=== PATIENT | male | born 1995 | race Caucasian/White ===

== ENCOUNTER 2016-10-26 18:51 | Emergency (ER) | payer OTHER ==
[~2016-10-26] VITALS: Ht 185.4 cm; Wt 86.2 kg
[2016-10-26 19:04] VITALS: TEMP 36.6; Ht 185.4 cm; Wt 86.2 kg
[2016-10-26] MEDS ORDERED: XYLOCAINE 1%/SOD BICARB 20 ML VIAL INFIL STA (19:59)
[2016-10-26] MEDS ORDERED: BUPIVACAINE 0.5 % 5 MG/1 ML MPF 30ML VIAL INFIL ONE (20:00)
--- NOTE | 2016-10-26 20:44 | DIAGNOSTIC IMAGING REPORT ---
LEFT INDEX FINGER 3 VIEWS CLINICAL HISTORY: left index finger laceration COMPARISON: None. DISCUSSION: No fractures or dislocations are visualized. No radiopaque foreign bodies are visualized. There is soft tissue laceration at the level of the proximal interphalangeal joint. IMPRESSION: 1. No fractures or dislocations identified 2. No radiopaque foreign bodies identified Electronically signed by: Steven Madrid M.D. 10/26/2016 8:41 PM Dictated Date/Time: 10/26/2016 8:41 PM
--- NOTE | 2016-10-26 21:35 | EMERGENCY ROOM VISIT NOTE ---
ED Visit Note First contact with patient: 19:52 Chief Complaint: "laceration to left hand" History of Present Illness: This patient is a 20 year old male who presents to the Emergency Department via private vehicle for evaluation of their left index finger laceration. Patient sustained the laceration while moving a mirror. They report a moderate amount of bleeding initially. They deny any numbness or tingling into the distal extremity. They report no decreased range of motion of the affected digit. Patient rates his current discomfort as a 6/10. He is right-handed. Patient's Tetanus status is currently up-to-date. Medications: none reported Allergies: NKDA PMH: No pertinent. SHx: Pt. is a [employer] student. ROS: All pertinent positive and negative review of systems are appropriately documented in the History of Present Illness. Physical Exam: VITAL SIGNS - Vital signs and nursing notes were reviewed. GENERAL -20-year-old male appearing his stated age who is in no acute distress. Communicates well with provider and answers questions appropriately. SKIN - There is a 1.5 cm long laceration noted on the ventral aspect of the left 2nd digit. The edges gape apart with traction. No foreign bodies appreciated. Upon further examination there are no deep structures including vessel, tendon, or bony structures appreciated. There is no active bleeding noted. MUSCULOSKELETAL - Laceration as described above. +5/5 strength appreciated of the affected digit. Full range of motion of the affected digit. NEUROLOGIC - no neurologic deficits. VASCULAR - Capillary refill was brisk. IMAGING: LEFT INDEX FINGER 3 VIEWS CLINICAL HISTORY: left index finger laceration COMPARISON: None. DISCUSSION: No fractures or dislocations are visualized. No radiopaque foreign bodies are visualized. There is soft tissue laceration at the level of the proximal interphalangeal joint. IMPRESSION: 1. No fractures or dislocations identified 2. No radiopaque foreign bodies identified Electronically signed by: Steven Madrid M.D. 10/26/2016 8:41 PM Dictated Date/Time: 10/26/2016 8:41 PM ED Course: Patient was seen and evaluated by myself. Risk and benefits of performing primary wound closure versus no repair were discussed with the patient who verbalizes understanding. Verbal consent was obtained prior to performing the procedure. No anesthesia was utilized as after discussing benefits versus risks with the patient, it was identified that more pain be likely elicited from the injection of the anesthesia rather than a cleansing of the wound followed by Dermabond. The wound edges do not approximate well, and it appears that a section of the skin is been removed. This appears to be slightly avulsed. There is no bone involvement however neck was obtained to further evaluate deep tissue. This was negative. As above. After thorough cleansing of the region Dermabond was applied with good fit. The area was then cleansed, and dressed with Telfa followed by a finger splint and secured with Coban. The patient tolerated this very well, was educated upon worrisome symptoms which to return. He was offered various closure modalities and chose Dermabond. I do believe this is appropriate. Patient educated on worrisome symptoms for return visit to the Emergency Department. Patient discharged to home in good condition. Current/Historical Medications No Active Prescriptions or Reported Meds Allergies Coded Allergies: No Known Allergies (Unverified , 10/26/16) Vital Signs Date Time Temp Pulse Resp B/P Pulse Ox O2 Delivery O2 Flow Rate FiO2 10/26/16 21:50 97 18 137/76 99 10/26/16 19:04 36.6 99 18 137/79 97 Room Air Medications Administered Medications (Trade) Dose Ordered Sig/Carlitos Route Start Time Stop Time Status Last Admin Dose Admin Lidocaine HCl (Buffered Lidocaine 1% Inj) 20 ml NOW STAT INFIL 10/26/16 19:59 10/26/16 21:46 DC 10/26/16 20:07 20 ML Bupivacaine HCl (Marcaine 0.5% MPF Inj) 30 ml NOW ONCE INFIL 10/26/16 20:00 10/26/16 21:46 DC 10/26/16 20:00 30 ML Departure Information Impression Primary Impression: Laceration Dispostion Home / Self-Care Condition GOOD Prescriptions No Active Prescriptions or Reported Meds Referrals No Doctor, Assigned (PCP) Patient Instructions My [facility] Additional Instructions Discharge Instructions: You have received Dermabond on your finger. Please wear the splint for comfort for 5 days or until pain free. Proper wound care is essential for adequate wound healing and infection prevention. You can shower and clean the wound with soap and water. Do not scour over the wound, pat dry with a towel. Do not submerse the wound (i.e. bathe or dish wash) until the sutures have been removed. Look for signs of infection of the wound including: increased pain, swelling, foul discharge, streaking, or increased temperature. If any of these are noticed you should return to the Emergency Department for further assessment and treatment. As with any laceration you may have received nerve damage to the surrounding tissues. This damage may or may not be permanent. You should keep the area covered with sunscreen for the first 6 months to 1 year when at risk for exposure to help minimize scarring. You can also use scar reducing creams or Vitamin E oil to help minimize scarring. For pain control, you can use the following [id number] medicines (if >12 yo): - Regular strength (325mg/tab) Tylenol (acetaminophen) 2 tabs every 4-6 hours as needed. Do not exceed 12 tablets in a 24 hour period. Avoid taking more than 3 grams (3000 mg) of Tylenol per day. This includes any other sources of acetaminophen you may take on a regular basis. - Regular strength (200 mg/tab) Advil (ibuprofen) 1-2 tabs every 4-6 hours as needed. Do not exceed a dose of 3200 mg per day. Return to the emergency department if your symptoms worsen despite treatment course outlined above. Please return to the emergency department with any new/concerning symptoms.
[2016-10-26 21:50] VITALS: BP 137/76; PULSE 97; O2SAT 99
== END 2016-10-26 21:50 | disposition home or self-care (01) ==
LOC: C.EDB 18:54 → C.EDD 21:50
DX: S61.211A Laceration without foreign body of left index finger without damage to nail, initial encounter (principal); W26.8XXA Contact with other sharp object(s), not elsewhere classified, initial encounter; Y93.89 Activity, other specified; Y99.8 Other external cause status